=== PATIENT | male | born 1960 ===

== ENCOUNTER 2017-08-07 08:12 | Day surgery (SDC) | payer MEDICARE ==
[2017-08-07] MEDS ORDERED: Lactated Ringer's 1,000 ML IV ONE (09:38)
[2017-08-07] MEDS ORDERED: Midazolam 2 MG/2 ML VIAL ONE (09:58)
[2017-08-07] MEDS ORDERED: Propofol 10 mg/ml Inj (20 ML) ONE (09:58)
[2017-08-07 11:15] VITALS: TEMP 98
[2017-08-07 11:34] VITALS: BP 124/56; PULSE 78; RESP 16; O2SAT 100
== END 2017-08-07 11:35 | disposition home or self-care (01) ==
LOC: H.ENDO 08:12
PROVIDERS: ATTEND Internal Medicine Gastroenterology
DX: Z12.11 Encounter for screening for malignant neoplasm of colon (principal); E11.9 Type 2 diabetes mellitus without complications; E78.5 Hyperlipidemia, unspecified; I10 Essential (primary) hypertension; K30 Functional dyspepsia; D12.6 Benign neoplasm of colon, unspecified; K64.8 Other hemorrhoids; K57.30 Diverticulosis of large intestine without perforation or abscess without bleeding; K21.0 Gastro-esophageal reflux disease with esophagitis; K31.9 Disease of stomach and duodenum, unspecified; R10.13 Epigastric pain; K29.50 Unspecified chronic gastritis without bleeding
CPT/HCPCS: 43239; 45390; 82948; 88305; J2250; J2704; J7120